=== PATIENT | female | born 1930 | race Two or more races ===

== ENCOUNTER 2017-03-22 21:19 | Emergency (ER) | payer MEDICARE, MEDICAID ==
[~2017-03-22] VITALS: Ht 167.6 cm; Wt 86.2 kg
[~2017-03-22 21:19] MED LIST: LETR2.5T PO; METF500T PO; Verapamil Hcl PO
[2017-03-22 21:24] VITALS: BP 120/57
--- NOTE | 2017-03-22 22:16 | NUR ---
CALLED PT IN [place], NO RESPONSE
== END 2017-03-22 22:26 | disposition left against medical advice (07) ==
LOC: ER 21:23
DX: Z53.21 Procedure and treatment not carried out due to patient leaving prior to being seen by health care provider (principal)
CPT/HCPCS: A4606; Z7610